=== PATIENT | female | born 1995 | race Caucasian/White ===

== ENCOUNTER 2019-10-27 16:50 | Inpatient (IN) | payer MEDICAID ==
[2019-10-27] MEDS ORDERED: Tranexamic Acid 1,000 MG in Sodium Chloride 0.9% 100 ML IV PRN (17:07)
[2019-10-27] MEDS ORDERED: Sodium Chloride 0.9% 10 ML Syringe FLUSH PRN (17:07)
[2019-10-27] MEDS ORDERED: Lactated Ringers 1,000 ML IV ONE (17:07)
[2019-10-27] MEDS ORDERED: Lidocaine 1% 30 ML SDV INJECT PRN (17:07)
[2019-10-27] MEDS ORDERED: Misoprostol 400 MCG (4 X 100 MCG TAB) RECTAL PRN (17:07)
[2019-10-27] MEDS ORDERED: Carboprost Tromethamine 250 MCG/1 ML Amp IM PRN (17:07)
[2019-10-27] MEDS ORDERED: Ondansetron 4 MG/2 ML SDV IVPUSH PRN (17:07)
[2019-10-27] MEDS ORDERED: Methylergonovine 0.2 MG/1 ML Amp IM PRN (17:07)
[2019-10-27] MEDS ORDERED: fentaNYL 100 MCG/2 ML SDV IVPUSH PRN (17:07)
[2019-10-27] MEDS ORDERED: Lactated Ringers 1,000 ML IV SCH (17:15)
[2019-10-27] MEDS ORDERED: Oxytocin/Normal Saline 30 UNIT/500 ML BAG IV SCH (17:15)
[2019-10-27] MEDS ORDERED: EPINEPHrine 1 MG/1 ML Amp ONE (18:44)
[2019-10-27] MEDS ORDERED: fentaNYL 100 MCG/2 ML SDV ONE (18:44)
[2019-10-27] MEDS ORDERED: Sodium Bicarbonate 4.2% 2.5 MEQ/5 ML SDV ONE (18:45)
--- NOTE | 2019-10-27 19:08 | PCM.SN.2 ---
- Free Text/Narrative Note: Intrathecal. Sitting position,sterile prep and drape.1% lidocaine w bicarb for skinwheal to L2 L3 interspace. Introducer, 24 ga Pencan x 1.Pos CSF, neg heme, neg parasthesia. 0.1 ml pf 1:1000 epi, 20 mcg pf sufenta, 30 mcg pf fentanyl, 0.4 ml pf ns and 6 mg of 0.75% pf bupivacaine injected after CSF aspiration. Pt to L lateral position. Procedure time 1839 to 1909
--- NOTE | 2019-10-27 19:47 | PN ---
DATE: 10/27/2019 TIME: 1909 SUBJECTIVE: The patient has received her intrathecal and is resting comfortably at this time. Ready to proceed with artificial rupture of membranes so that labor can continue to proceed nicely and we can hopefully avoid a second intrathecal. She understands the risks and benefits. OBJECTIVE: Vital Signs: Blood pressure 121/62, pulse of 69, respiratory rate of 18, O2 saturations 94% on room air. Cervix is stretchy, 7 cm dilated. Artificial rupture of membranes performed with good return of clear fluid. After the head came down, the cervix seemed to come paper machine back tender to about 6.5 cm, 95%. Vertex is engaged. The patient tolerated well. ASSESSMENT: 1. 40-1/7 weeks' by last menstrual period. 2. 2, para 1-0-0-1. 3. Blood type A negative, rubella immune, and group B strep negative. PLAN: Continue active labor management and I will be staying nearby. She has a history of going fairly quickly in labor and we will see how things progress. We can augment with Pitocin if needed. [facility] /[id number]
[2019-10-27] MEDS ORDERED: Benzocaine/Menthol 20%-0.5% Spray 56 GM Canister TOP PRN (21:30)
[2019-10-27] MEDS ORDERED: Simethicone 80 MG Tab.Chew PO PRN (21:30)
--- NOTE | 2019-10-27 22:39 | DEL ---
DATE: 10/27/2019 PREPROCEDURE DIAGNOSES: 1. 40-1/7 weeks' based on last menstrual period. 2. 2, para 1-0-0-1. 3. Blood type A negative, rubella immune, and group B strep negative. 4. Anemia of . POSTPROCEDURE DIAGNOSES: 1. 40-1/7 weeks' based on last menstrual period. 2. 2, para 2-0-0-2, status post spontaneous vaginal delivery and first- degree laceration repair. 3. Blood type A negative, rubella immune, and group B strep negative. 4. Anemia of . BRIEF HISTORY: A 24-year-old female with the above-listed diagnoses, presented to the hospital in active labor and cervix initially 5 cm dilated at time of presentation. She continued to labor on her own and had an intrathecal placed at about 5.5 cm and an artificial rupture of membranes was performed. She continued to progress nicely through labor at that time, and once complete was ready to start pushing. After a short period of laboring down, grand total stage I labor was about 6 hours. She only pushed twice through 1 contraction and had an uncomplicated vaginal delivery with details as below. Placenta delivered after about 10 minutes. DETAILS: With the patient in dorsal lithotomy position, she delivered a viable male infant over intact perineum in the ZEB position. was dried, stimulated, and mouth bulb suctioned and baby placed upon mother's abdomen. After delay, 3-vessel umbilical cord was doubly clamped and cut, and cord blood sample obtained. Placenta then delivered by gentle cord traction and concomitant uterine massage. Labia and vagina inspected. There was a first- degree perineal laceration that did have a significant bleeding blood vessel, so this was closed with a 3-0 Vicryl stitch in usual fashion resulting in excellent hemostasis. There were no anterior lacerations. The patient tolerated procedure well. ANESTHESIA: Intrathecal. FINDINGS: Viable male infant. scores of 9 and 9. weight 3620 g, 8 pounds 0 ounces. Normal maternal anatomy. COMPLICATIONS: None. ESTIMATED BLOOD LOSS: 200 mL. DISPOSITION: Mother and baby to stay in the room and initiate at this time. [facility] /[id number]
[2019-10-28] MEDS: Acetaminophen 325 MG Tab PO PRN ×2 (00:41→09:20)
[2019-10-28] MEDS: Ibuprofen 800 MG Tab PO PRN ×3 (02:33→20:15)
[2019-10-28] MEDS ORDERED: Prenatal Multivitamin with Calcium/Folic Acid/Iron Tab PO SCH (09:00)
[2019-10-28] MEDS: Docusate Sodium 100 MG Cap PO PRN ×2 (09:20→20:15)
[2019-10-28] MEDS ORDERED: EPINEPHrine 1 MG/1 ML Amp ONE (13:36)
[2019-10-28] MEDS ORDERED: Sodium Bicarbonate 4.2% 2.5 MEQ/5 ML SDV ONE (13:36)
[2019-10-28] MEDS ORDERED: fentaNYL 100 MCG/2 ML SDV ITHECAL ONE (13:36)
--- NOTE | 2019-10-29 22:57 | DISCH ---
ADMITTING DIAGNOSES: 1. 40-1/7 weeks' intrauterine based on last menstrual period. 2. 2, para 1-0-0-1. 3. Blood type A negative, rubella immune, group B strep negative. 4. Anemia of . DISCHARGE DIAGNOSES: 1. 40-1/7 weeks' intrauterine based on last menstrual period. 2. 2, now para 2-0-0-2, status post spontaneous vaginal delivery with first-degree laceration repair. 3. Blood type A negative, rubella immune, group B strep negative. 4. Anemia of . 5. mother. BRIEF HISTORY: A 24-year-old female presented to the hospital with spontaneous onset of labor and was 5 cm dilated on admission. Artificial rupture of membranes was performed after an intrathecal was placed and she was 5.5 cm dilated at that time, after which her labor continued to progress nicely. When she got to complete, she labored down for a short period of time and then delivered with only 2 pushes, 8 pound 0 ounce, 3620 g male with scores of 9 and 9. Delivery was uncomplicated and first-degree laceration was repaired without incident. PROCEDURES PERFORMED: Intrathecal, artificial rupture of membranes, spontaneous vaginal delivery, and first-degree laceration repair. HOSPITAL COURSE: Good. The patient has done well since delivery. She is very well and does not need any additional assistance. Her bleeding has been normal. No chest pain. No shortness of breath. Edema is improving, and she has no acute concerns, and wanted to go home at 24 hours . DISCHARGE CONDITION: Good. PHYSICAL EXAMINATION: Vital Signs: Temperature is 98.1, pulse 81, blood pressure 112/78, respiratory rate of 16, and O2 saturations 99% on room air. Heart: Regular without murmur. Lungs: Clear to auscultation bilaterally. Abdomen: Soft, nontender. Positive bowel sounds. Fundus is firm and below the umbilicus. Extremities: Trace edema. No erythema or tenderness noted. LABORATORY DATA: Admission hemoglobin of 13.6, platelet count of 222. Blood loss at delivery was only around 200 mL. Therefore, repeat CBC was not felt to be necessary. DISPOSITION: Home with family. FOLLOWUP: She will need a 6-week exam. I will be seeing her in 2 days and 2 weeks when she brings the baby in for a check, so I can screen for depression at that time. MEDICATIONS: Ibuprofen 800 mg every 8 hours as needed for pain, Tylenol 650 mg every 6 hours as needed for pain, vitamin continue 1 daily. Colace can be used if needed for constipation and she can finish the iron pills that she had at home from before. INSTRUCTIONS: Routine post vaginal delivery instructions for mother were provided. She understands to return to the hospital or clinic if she has any problems with excessive bleeding, fevers, chills, uterine tenderness, foul-smelling drainage, discharge, or any other concerns that may arise, and her questions were answered. [facility] /[id number]
== END 2019-10-28 21:35 | disposition home or self-care (01) | DRG 807 ==
LOC: DL.OBCHECK 16:50 → DL.OB 17:07 → OBSVTOIN 21:12
PROVIDERS: ADMIT Family Medicine; ATTEND Family Medicine
PROC: 10E0XZZ Delivery of Products of Conception, External Approach (ICD-10-PCS; principal; 2019-10-27)
PROC: 10907ZC Drainage of Amniotic Fluid, Therapeutic from Products of Conception, Via Natural or Artificial Opening (ICD-10-PCS; 2019-10-27)
PROC: 0HQ9XZZ Repair Perineum Skin, External Approach (ICD-10-PCS; 2019-10-27)
PROC: 3E0R3BZ Introduction of Anesthetic Agent into Spinal Canal, Percutaneous Approach (ICD-10-PCS; 2019-10-27)
DX: O48.0 Post-term pregnancy (principal); Z37.0 Single live birth; Z3A.40 40 weeks gestation of pregnancy; O99.02 Anemia complicating childbirth; D64.9 Anemia, unspecified; O70.0 First degree perineal laceration during delivery; Z28.82 Immunization not carried out because of caregiver refusal
CPT/HCPCS: 36415; 59409; 85027; 85461; 86850; 86870; 86900; 86901; A9270-GY; J0171; J2590; J2790; J3010; J7120; U0002

== ENCOUNTER 2023-03-14 22:08 | Inpatient (IN) | payer MEDICAID, OTHER ==
[2023-03-15] MEDS ORDERED: Sodium Chloride 0.9% 10 ML Syringe FLUSH PRN ×2 (00:09→08:26)
[2023-03-15] MEDS ORDERED: Acetaminophen 325 MG Tab PO PRN ×3 (00:09→08:26)
[2023-03-15] MEDS ORDERED: Lactated Ringers 1,000 ML IV ONE (00:09)
[2023-03-15] MEDS ORDERED: Methylergonovine 0.2 MG/1 ML Amp IM PRN (00:09)
[2023-03-15] MEDS ORDERED: Carboprost Tromethamine 250 MCG/1 ML Amp IM PRN ×2 (00:09→08:26)
[2023-03-15] MEDS ORDERED: Lidocaine 1% 30 ML SDV INJECT ONE (00:09)
[2023-03-15] MEDS ORDERED: Tranexamic Acid 1,000 MG in Sodium Chloride 0.9% 100 ML IV PRN ×2 (00:09→08:26)
[2023-03-15] MEDS ORDERED: Misoprostol 400 MCG (4 X 100 MCG TAB) RECTAL PRN ×2 (00:09→08:26)
[2023-03-15] MEDS ORDERED: Ondansetron 4 MG/2 ML SDV IVPUSH PRN (00:09)
[2023-03-15] MEDS ORDERED: Lactated Ringers 1,000 ML IV SCH (00:15)
[2023-03-15] MEDS ORDERED: Oxytocin/Normal Saline 30 UNIT/500 ML BAG IV SCH (00:15)
[2023-03-15 00:28] LABS: HEMATOCRIT 41.2 % (37.0-47.0); HEMOGLOBIN 16.8 g/dL (12.0-16.0); MEAN CORPUSCULAR HEMOGLOBIN 35.4 pg (27.0-34.0); MEAN CORPUSCULAR HGB CONC 40.8 g/dL (33.0-35.0); MEAN CORPUSCULAR VOLUME 86.9 fL (80-100); RED BLOOD CELL COUNT 4.74 10^6/uL (4.2-5.4); WHITE BLOOD CELL COUNT,WBC 10.9 10^3/uL (5.0-10.0)
[2023-03-15] MEDS ORDERED: Bupivacaine 0.25% 10 ML SDV ONE (01:29)
[2023-03-15] MEDS ORDERED: fentaNYL 100 MCG/2 ML SDV ONE (01:29)
[2023-03-15] MEDS ORDERED: fentaNYL 100 MCG/2 ML SDV IV ONE (01:29)
[2023-03-15] MEDS ORDERED: ePHEDrine 50 MG/ML SDV IVPUSH PRN (02:12)
[2023-03-15] MEDS ORDERED: Phenylephrine HCl In 0.9% NaCl 1 MG/10 ML Syringe IVPUSH PRN (02:12)
[2023-03-15] MEDS ORDERED: Ropivacaine 200 MG in Premix Bag 1 BAG EPIDUR SCH (02:15)
[2023-03-15] MEDS ORDERED: Simethicone 80 MG Tab.Chew PO PRN (08:26)
[2023-03-15] MEDS ORDERED: Benzocaine/Menthol 20%-0.5% Spray 78 GM Cannister TOP PRN (08:26)
[2023-03-15] MEDS ORDERED: Zolpidem 5 MG Tab PO PRN (08:26)
[2023-03-15] MEDS ORDERED: Oxytocin 10 Units/1 ML SDV IM PRN (08:26)
[2023-03-15] MEDS ORDERED: Docusate Sodium 100 MG Cap PO PRN (08:26)
[2023-03-15] MEDS ORDERED: Prenatal Multivitamin with Calcium/Folic Acid/Iron Tab PO SCH (09:00)
[2023-03-15] MEDS ORDERED: Witch Hazel Medicated Pads 100/Jar TOP PRN (09:00)
[2023-03-15] MEDS: Prenatal Multivitamin with Calcium/Folic Acid/Iron Tab PO SCH (09:54)
[2023-03-15] MEDS: Ibuprofen 800 MG Tab PO PRN ×2 (09:55→18:08)
[2023-03-16] MEDS: Ibuprofen 800 MG Tab PO PRN (08:50)
[2023-03-16] MEDS: Prenatal Multivitamin with Calcium/Folic Acid/Iron Tab PO SCH (08:53)
== END 2023-03-16 11:50 | disposition home or self-care (01) | DRG 807 ==
LOC: DL.OBCHECK 22:08 → DL.OB 23:58 → OBSVTOIN 03-15 00:09
PROVIDERS: ADMIT Family Medicine; ATTEND Family Medicine
PROC: 10E0XZZ Delivery of Products of Conception, External Approach (ICD-10-PCS; principal; 2023-03-15)
PROC: 10907ZC Drainage of Amniotic Fluid, Therapeutic from Products of Conception, Via Natural or Artificial Opening (ICD-10-PCS; 2023-03-15)
PROC: 0HQ9XZZ Repair Perineum Skin, External Approach (ICD-10-PCS; 2023-03-15)
PROC: 3E0R3BZ Introduction of Anesthetic Agent into Spinal Canal, Percutaneous Approach (ICD-10-PCS; 2023-03-15)
PROC: 00HU33Z Insertion of Infusion Device into Spinal Canal, Percutaneous Approach (ICD-10-PCS; 2023-03-15)
PROC: 3E0P7VZ Introduction of Hormone into Female Reproductive, Via Natural or Artificial Opening (ICD-10-PCS; 2023-03-15)
PROC: 3E0334Z Introduction of Serum, Toxoid and Vaccine into Peripheral Vein, Percutaneous Approach (ICD-10-PCS; 2023-03-15)
DX: O48.0 Post-term pregnancy (principal); Z37.0 Single live birth; O26.893 Other specified pregnancy related conditions, third trimester; O66.3 Obstructed labor due to other abnormalities of fetus; O16.4 Unspecified maternal hypertension, complicating childbirth; Z3A.40 40 weeks gestation of pregnancy; Z98.890 Other specified postprocedural states; Z82.79 Family history of other congenital malformations, deformations and chromosomal abnormalities; Z67.11 Type A blood, Rh negative; O77.0 Labor and delivery complicated by meconium in amniotic fluid; O69.81X0 Labor and delivery complicated by cord around neck, without compression, not applicable or unspecified; O70.0 First degree perineal laceration during delivery
CPT/HCPCS: 36415; 51702; 59409; 85027; 85461; 86850; 86870; 86900; 86901; A9270-GY; J2590; J2790; J2795; J3010; J7120